=== PATIENT | male | born 1965 | race Caucasian/White ===

== ENCOUNTER 2017-05-22 13:33 | Emergency (ER) | payer MEDICARE, OTHER ==
[~2017-05-22] VITALS: Ht 172.7 cm; Wt 68.0 kg
[2017-05-22 13:35] VITALS: BP 138/86; PULSE 90; RESP 16; TEMP 97.6; O2SAT 97
[2017-05-22] MEDS ORDERED: NICOTINE 14 MG/24 HR PATCH T-DERMAL ONE (15:00)
[2017-05-22] MEDS ORDERED: TETANUS/DIPHTHERIA TOXOID ADULT 0.5 ML VIAL IM ONE (15:00)
--- NOTE | 2017-05-22 15:04 | PD ---
HPI Chief Complaint: Alcohol/Drug Intoxication Time Seen by Provider: 14:53 Travel History International Travel<30 days: No Contact w/Intl Traveler<30days: No Traveled to known affect area: No History of Present Illness HPI 52-year-old male presents to the emergency Department under [place] act by local police for alcohol intoxication. The patient alert oriented to person, place, time. He states he was taking a train after drinking at a friend's house. At the train station in [place], he tripped and fell. He states the police then brought him to [facility]. Patient has an abrasion to the right forehead and right knee. He complains of neck and back pain with history of chronic neck and back pain. He states his tetanus immunization is not up-to-date. Patient denies any LOC. He denies taking anticoagulants. Moderate severity. No exacerbating or alleviating factors. [facility] Social History Alcohol Use: Yes Tobacco Use: Yes Substance Use: No Allergies-Medications (Allergen,Severity, Reaction): Coded Allergies: No Known Allergies (Unverified , 05/22/17) Review of Systems Except as stated in HPI: all other systems reviewed are Neg Physical Exam Narrative GENERAL: Well-nourished, well-developed male patient, ambulatory. Afebrile. SKIN: Focused skin assessment warm/dry. Patient has abrasion to the right forehead and right anterior knee. HEAD: Normocephalic. Atraumatic. EYES: No scleral icterus. No injection or drainage. NECK: Supple, trachea midline. No JVD or lymphadenopathy. CARDIOVASCULAR: Regular rate and rhythm without murmurs, gallops, or rubs. RESPIRATORY: Breath sounds equal bilaterally. No accessory muscle use. Lungs sounds are clear to auscultation. GASTROINTESTINAL: Abdomen soft, non-tender, nondistended. MUSCULOSKELETAL: No cyanosis, or edema. No tenderness over right knee, full range of motion. BACK: Nontender without obvious deformity. No CVA tenderness. Data Data Last Documented VS Vital Signs Date Time Temp Pulse Resp B/P (MAP) Pulse Ox O2 Delivery O2 Flow Rate FiO2 05/22/17 13:35 97.6 90 16 138/86 (103) [address] Brain W/O Iv Contrast(Rout) (05/22/17 ) Ct Cerv Spine W/O Contrast (05/22/17 ) Spine, Lumbar - Ltd (Ap & Lat) (05/22/17 ) Tetanus/Diphtheria Tox Adult (Tetanus/Di (05/22/17 15:00) Nicotine 14 Mg Patch.24 Hr (Habitrol 14 (05/22/17 15:00) MDM Medical Decision Making Medical Screen Exam Complete: Yes Emergency Medical Condition: Yes Medical Record Reviewed: Yes Interpretation(s) Last Impressions Lumbar Spine X-Ray 05/22/17 0000 Signed Impressions: Service Date/Time: Monday, May 22, 2017 15:25 - CONCLUSION: Degenerative changes as above. Justo German MD FACR Head CT 05/22/17 0000 Signed Impressions: Service Date/Time: Monday, May 22, 2017 15:09 - CONCLUSION: 1. Nonspecific white matter changes 2. Right maxillary sinus disease. Cyrus Manuel MD Cervical Spine CT 05/22/17 0000 Signed Impressions: Service Date/Time: Monday, May 22, 2017 15:09 - CONCLUSION: Degenerative changes as described above. Negative for fracture. Controlled flexion-extension films would be of benefit to exclude instability. Justo German MD FACR Differential Diagnosis Acute alcohol intoxication versus alcohol abuse versus closed head injury versus intracranial hemorrhage versus cervical strain versus fracture Narrative Course 52-year-old male presents to the emergency Department a for alcohol intoxication. He did trip and fall and has abrasion to his forehead and right knee. Patient admits to drinking alcohol. He complains of neck and back pain. CT of the brain and cervical spine are ordered and pending. X-ray lumbar spine is ordered and pending. Patient is requesting to smoke, he has provided a nicotine patch. Tetanus immunization is updated. CT of the brain shows nonspecific white matter changes, right maxillary sinus disease. CT of the cervical spine shows inverted changes, negative for fracture , controlled flexion-extension films would be of benefit to exclude instability. X-ray of the lumbar spine shows no acute fracture. Suspicion for cervical injury is low. Patient has full range of motion, no tenderness to palpation over the midline spine. I do not believe further imaging is indicated at this time. Patient is stable for discharge. He is clinically sober. He is ambulatory with a steady gait. He is alert and oriented to person, place, and time and answers all questions appropriately. The patient was discharged in stable condition with instructions, including return instructions and follow up instructions. Diagnosis Primary Impression: Alcohol intoxication Qualified Codes: F10.920 - Alcohol use, unspecified with intoxication, uncomplicated Additional Impression: Closed head injury Qualified Codes: S09.90XA - Unspecified injury of head, initial encounter Referrals: Primary Care Physician Patient Instructions: Alcohol Intoxication (ED), General Instructions, Head Injury (ED) Additional Instructions: Drink alcohol in moderation. Follow-up with your primary care physician. Return to the emergency department for any acute worsening of symptoms. Med/Other Pt SpecificInfo: No Change to Meds Disposition: 01 DISCHARGE HOME Condition: Stable Suni Wing May 22, 2017 15:04
--- NOTE | 2017-05-22 15:30 | RADRPT ---
EXAM DATE/TIME: 05/22/2017 15:09 [facility] COMPARISON: No previous studies available for comparison. INDICATIONS : Neck pain due to fall. RADIATION DOSE: 17.87 CTDIvol (mGy) MEDICAL HISTORY : None SURGICAL HISTORY : None. ENCOUNTER: Initial ACUITY: 1 day PAIN SCALE: 7/10 LOCATION: Bilateral neck region. TECHNIQUE: Volumetric scanning of the cervical spine was performed. Multiplanar reconstructions in the sagittal, coronal and oblique axial planes were performed. Using automated exposure control and adjustment o f the mA and/or kV according to patient size, radiation dose was kept as low as reasonably achievable to obtain optimal diagnostic quality images. DICOM format image data is available electronically f or review and comparison. FINDINGS: VERTEBRAE: Normal vertebral body height. Degenerative changes at C4-C5, C5-C6 and C6-C7. ALIGNMENT: No evidence of subluxation. C2-C3: The bony spinal canal is normal in size. No evidence of disc bulge or herniation. The neural forami na are bilaterally patent. C3-C4: Mild facet disease on the right neural foramen encroachment. Mild uncinate ridging. C4-C5: Mild uncinate ridging and bilateral neural foramina encroachment. Spinal stenosis is mild C5-C6: Moderate uncinate ridging the bilateral neural foramina encroachment worse on the right. Spinal sten osis is moderate. C6-C7: Moderate uncinate ridging with bilateral neural foraminal encroachment worse on the right. C7-T1: The bony spinal canal is normal in size. No evidence of disc bulge or herniation. The neural forami na are bilaterally patent. CONCLUSION: Degenerative changes as described above. Negative for fracture. Controlled flexion- extension films would be of benefit to exclude instability. Justo German MD FACR on May 22, 2017 at 15:25 Board Certified Radiologist. This report was verified electronically.
--- NOTE | 2017-05-22 15:41 | RADRPT ---
EXAM DATE/TIME: 05/22/2017 15:25 [facility] COMPARISON: No previous studies available for comparison. INDICATIONS : Lower back pain starting today post fall MEDICAL HISTORY : Degenerative disc disease SURGICAL HISTORY : None. ENCOUNTER: Initial ACUITY: 1 day PAIN SCORE: 10/10 LOCATION: Lumbar spine FINDINGS: Loss of disc space height at L4-5 and L5-S1 worse at L4-5. Moderate degenerative changes in the face ts. Good preservation of vertebral body heights. Acute fracture is not appreciated. CONCLUSION: Degenerative changes as above. Justo German MD FACR on May 22, 2017 at 15:38 Board Certified Radiologist. This report was verified electronically.
--- NOTE | 2017-05-22 16:05 | RADRPT ---
EXAM DATE/TIME: 05/22/2017 15:09 [facility] COMPARISON: No previous studies available for comparison. INDICATIONS : Head pain do to fall. RADIATION DOSE: 56.35 CTDIvol (mGy) MEDICAL HISTORY : None SURGICAL HISTORY : None. ENCOUNTER: Initial ACUITY: 1 day PAIN SCALE: 5/10 LOCATION: Bilateral cranial TECHNIQUE: Multiple contiguous axial images were obtained of the head. Using automated exposure control and adj ustment of the mA and/or kV according to patient size, radiation dose was kept as low as reasonably a chievable to obtain optimal diagnostic quality images. DICOM format image data is available electro nically for review and comparison. FINDINGS: CEREBRUM: Areas of low attenuation in the white matter. The ventricles are normal for age. No evidence of midl ine shift, mass lesion, hemorrhage or acute infarction. No extra-axial fluid collections are seen. POSTERIOR FOSSA: The cerebellum and brainstem are intact. The 4th ventricle is midline. The cerebellopontine angle i s unremarkable. EXTRACRANIAL: The visualized portion of the orbits is intact. Almost complete opacification of the right maxillary sinus. SKULL: The calvaria is intact. No evidence of skull fracture. CONCLUSION: 1. Nonspecific white matter changes 2. Right maxillary sinus disease. Cyrus Manuel MD on May 22, 2017 at 16:02 Board Certified Radiologist. This report was verified electronically.
== END 2017-05-22 16:40 | disposition home or self-care (01) ==
LOC: NEDAMB 13:33
DX: F10.129 Alcohol abuse with intoxication, unspecified (principal); S00.81XA Abrasion of other part of head, initial encounter; S80.211A Abrasion, right knee, initial encounter; W01.0XXA Fall on same level from slipping, tripping and stumbling without subsequent striking against object, initial encounter; G89.29 Other chronic pain; M54.2 Cervicalgia; M54.9 Dorsalgia, unspecified; Z23 Encounter for immunization; Z72.0 Tobacco use
CPT/HCPCS: 70450; 72100; 72125; 90471; 90714